=== PATIENT | female | born 1950 | race Caucasian/White ===

== ENCOUNTER 2023-01-20 21:32 | Observation (INO) | payer MEDICARE ==
[2023-01-20] MEDS ORDERED: Ondansetron 4 MG Tab.DIS PO ONE (22:31)
[2023-01-20 22:45] LABS: ESTIMATED GFR 90 mL/min (>60); TROPONIN I HIGH SENSITIVITY 8.6 pg/mL (<=60.3)
[2023-01-20] MEDS ORDERED: Sodium Chloride 0.9% 10 ML Syringe FLUSH PRN (23:11)
[2023-01-20] MEDS: Sodium Chloride 0.9% 1,000 ML IV SCH (23:27)
[2023-01-20] MEDS ORDERED: HYDROmorphone 0.5 MG/0.5 ML Syringe IVPUSH ONE (23:45)
[2023-01-21] MEDS: hydrALAZINE 25 MG Tab PO SCH ×4 (00:43→21:28)
[2023-01-21] MEDS: Cephalexin 250 MG Cap PO SCH ×3 (01:27→21:27)
[2023-01-21] MEDS: Sodium Chloride 0.9% 1,000 ML IV SCH (06:21)
[2023-01-21] MEDS ORDERED: Sodium Chloride 0.9% 1,000 ML IV SCH (08:30)
[2023-01-21] MEDS ORDERED: fentaNYL 100 MCG/2 ML SDV IVPUSH ONE (09:02)
[2023-01-21] MEDS ORDERED: Ondansetron 4 MG/2 ML SDV IVPUSH ONE (09:02)
[2023-01-21] MEDS ORDERED: HYDROmorphone 1 MG/ML Syringe IVPUSH ONE (10:39)
[2023-01-21 14:48] LABS: CORONAVIRUS COVID-19 NAA NEGATIVE (NEGATIVE)
[2023-01-21] MEDS ORDERED: Sodium Chloride 0.9% 250 ML IV SCH (15:15)
[2023-01-21] MEDS: HYDROmorphone 0.5 MG/0.5 ML Syringe IVPUSH PRN ×3 (15:46→21:25)
[2023-01-21] MEDS ORDERED: Non-Formulary Medication 1 Each (Hydroxyzine Hcl [Hydroxyzine Hcl] 50 MG Tablet) PO SCH (21:00)
[2023-01-21] MEDS ORDERED: Lisinopril 20 MG Tab PO SCH (21:00)
[2023-01-22] MEDS: hydrALAZINE 25 MG Tab PO SCH ×3 (02:04→13:22)
[2023-01-22] MEDS: HYDROmorphone 0.5 MG/0.5 ML Syringe IVPUSH PRN ×2 (03:41→05:54)
[2023-01-22] MEDS: Acetaminophen/HYDROcodone 325-5 MG Tab PO PRN ×2 (08:31→13:21)
[2023-01-22] MEDS: Baclofen 10 MG Tab PO PRN ×2 (08:32→18:09)
[2023-01-22] MEDS: Cephalexin 250 MG Cap PO SCH (08:32)
[2023-01-22] MEDS ORDERED: Ondansetron 4 MG/2 ML SDV IV PRN (13:45)
[2023-01-22] MEDS ORDERED: Sodium Chloride 0.9% 10 ML Syringe FLUSH PRN (13:45)
[2023-01-22] MEDS: Enoxaparin 40 MG/0.4 ML Syringe SUBCUT SCH (15:52)
[2023-01-22] MEDS: Lisinopril 20 MG Tab PO SCH ×2 (15:53→21:22)
[2023-01-22] MEDS: hydrOXYzine HCl 25 MG Tab PO SCH (21:22)
[2023-01-22] MEDS: Acetaminophen 325 MG Tab PO PRN (21:27)
[2023-01-23] MEDS: Acetaminophen 325 MG Tab PO PRN ×2 (05:35→11:19)
[2023-01-23] MEDS: Baclofen 10 MG Tab PO PRN (05:35)
[2023-01-23] MEDS: Lisinopril 20 MG Tab PO SCH ×2 (08:40→20:15)
[2023-01-23] MEDS ORDERED: Baclofen 10 MG Tab PO PRN (10:38)
[2023-01-23] MEDS: Acetaminophen/HYDROcodone 325-5 MG Tab PO PRN ×2 (15:18→20:14)
[2023-01-23] MEDS: Enoxaparin 40 MG/0.4 ML Syringe SUBCUT SCH (15:20)
[2023-01-23] MEDS: hydrOXYzine HCl 25 MG Tab PO SCH (20:15)
[2023-01-24] MEDS: Acetaminophen/HYDROcodone 325-5 MG Tab PO PRN ×2 (02:58→07:55)
[2023-01-24] MEDS: Lisinopril 20 MG Tab PO SCH (08:00)
== END 2023-01-24 10:35 | disposition home or self-care (01) ==
LOC: JP.ED 21:32 → JP.MS 01-22 12:34
PROVIDERS: ADMIT Hospitalist; ATTEND Hospitalist
DX: E87.1 Hypo-osmolality and hyponatremia (principal); M54.50 Low back pain, unspecified; G89.29 Other chronic pain; R51.9 Headache, unspecified; I10 Essential (primary) hypertension; Z87.891 Personal history of nicotine dependence; Z88.2 Allergy status to sulfonamides; Z88.8 Allergy status to other drugs, medicaments and biological substances; Z20.822 Contact with and (suspected) exposure to COVID-19; Z79.899 Other long term (current) drug therapy
CPT/HCPCS: 0241U; 36415; 70450; 80048; 80053; 81001; 84295; 84484; 85025; 85610; 85730; 86140; 87086; 93005; 93010; 96361; 96372; 96374; 96375; 96376; 97161; 97535; 99285; A9270; G0378; J1170; J1650; J2405; J3010; J3490; J7030; J7050; Q0162; 99222; 99232; 99238

== ENCOUNTER 2024-08-06 10:59 | Inpatient (IN) | payer MEDICARE ==
[2024-08-06] MEDS: Cyclobenzaprine 10 MG Tab PO ONE (11:58)
[2024-08-06 13:41] LABS: BASOPHILS ABSOLUTE AUTO 0.02 K/uL (0.00-0.10); BASOPHILS PERCENT AUTO 0.2 % (0.1-1.3); EOSINOPHILS ABSOLUTE AUTO 0.03 K/uL (0.00-0.40); EOSINOPHILS PERCENT AUTO 0.3 % (0.0-5.4); HEMATOCRIT 30.2 % (34.3-46.0); HEMOGLOBIN 10.4 g/dL (11.2-15.5); IMMATURE GRAN ABSOLUTE AUTO 0.05 K/uL (0.00-0.23); IMMATURE GRAN PERCENT AUTO 0.5 % (0.0-0.7); LYMPHOCYTES ABSOLUTE AUTO 0.77 K/uL (0.8-3.3); LYMPHOCYTES PERCENT AUTO 7.2 % (11.4-47.7); MEAN CORPUSCULAR HEMOGLOBIN 29.1 pg (31.6-35.5); MEAN CORPUSCULAR HGB CONC 34.4 g/dL (31.6-35.5); MEAN CORPUSCULAR VOLUME 84.6 fL (81.4-99.0); MONOCYTES ABSOLUTE AUTO 0.64 K/uL (0.20-0.90); NEUTROPHILS ABSOLUTE AUTO 9.15 K/uL (1.0-7.6); NEUTROPHILS PERCENT AUTO 85.8 % (40.0-78.1); PLATELET COUNT,PLT 257 K/uL (130-375); RED BLOOD CELL COUNT 3.57 M/uL (3.77-5.24); WHITE BLOOD CELL COUNT,WBC 10.7 K/uL (3.2-11.0)
[2024-08-06] MEDS: HYDROmorphone 0.5 MG/0.5 ML Syringe IVPUSH ONE (13:47)
[2024-08-06] MEDS: Sodium Chloride 0.9% 10 ML Syringe FLUSH PRN (13:47)
[2024-08-06 13:55] LABS: ANION GAP 14.3 mmol/L (5.0-14.0); CALCIUM 9.5 mg/dL (8.5-10.1); CREATININE 0.7 mg/dL (0.6-1.0); EST CRCL DRUG DOSING (CG) 47.98 mL/min; POTASSIUM,K 4.3 mmol/L (3.6-5.2)
[2024-08-06] MEDS ORDERED: Magnesium Hydroxide 400 MG/5 ML Susp 30 ML Cup PO PRN (14:23)
[2024-08-06] MEDS ORDERED: Ondansetron 4 MG/2 ML SDV IV PRN (14:23)
[2024-08-06] MEDS ORDERED: LORazepam 2 MG/ML SDV IVPUSH PRN (14:23)
[2024-08-06] MEDS ORDERED: Ondansetron 4 MG Tab.DIS PO PRN (14:23)
[2024-08-06] MEDS: Sodium Chloride 0.9% 1,000 ML IV SCH (15:13)
[2024-08-06] MEDS: HYDROmorphone 1 MG/ML Syringe IVPUSH PRN (16:10)
[2024-08-06] MEDS ORDERED: Lisinopril 20 MG Tab PO SCH (21:00)
[2024-08-06] MEDS: Acetaminophen/HYDROcodone 325-5 MG Tab PO SCH (21:14)
[2024-08-07] MEDS: HYDROmorphone 1 MG/ML Syringe IVPUSH PRN (02:58)
[2024-08-07 05:06] LABS: MEAN CORPUSCULAR HEMOGLOBIN 28.7 pg (31.6-35.5); MEAN CORPUSCULAR HGB CONC 33.3 g/dL (31.6-35.5); RED BLOOD CELL COUNT 3.49 M/uL (3.77-5.24)
[2024-08-07] MEDS: HYDROmorphone 0.5 MG/0.5 ML Syringe IVPUSH PRN (05:26)
[2024-08-07 05:31] LABS: A/G RATIO 0.9 (1.2-2.2); ALANINE AMINOTRANSFERASE,ALT 16 U/L (12-78); ALKALINE PHOSPHATASE 135 U/L (46-116); ASPARTATE AMNIOTRANSFERASE,AST 17 U/L (15-37); BILIRUBIN TOTAL 0.5 mg/dL (0.2-1.0); BLOOD UREA NITROGEN,BUN 8 mg/dL (7-18); CARBON DIOXIDE,CO2 24 mmol/L (21-32); CHLORIDE,CL 97 mmol/L (100-108); CREATININE 0.7 mg/dL (0.6-1.0); EST CRCL DRUG DOSING (CG) 49.11 mL/min; ESTIMATED GFR 90 mL/min (>60); GLUCOSE RANDOM 102 mg/dL (74-106); MAGNESIUM 1.5 mg/dL (1.8-2.4); POTASSIUM,K 3.9 mmol/L (3.6-5.2); PROTEIN TOTAL,TP 6.4 g/dL (6.4-8.2); SODIUM,NA 132 mmol/L (140-148)
[2024-08-07 05:34] LABS: ANION GAP 14.9 mmol/L (5.0-14.0)
[2024-08-07] MEDS: Lisinopril 20 MG Tab PO SCH (08:08)
[2024-08-07] MEDS: Magnesium Sulfate/Water Premix 2 GM in Premix Bag 1 BAG IV ONE (08:20)
[2024-08-07] MEDS ORDERED: Bupivacaine 0.5% 50 ML MDV ONE (14:08)
[2024-08-07] MEDS ORDERED: fentaNYL 100 MCG/2 ML SDV ONE (15:26)
[2024-08-07] MEDS ORDERED: Midazolam 1 MG/ML 2 ML SDV ONE (15:27)
[2024-08-07] MEDS ORDERED: Propofol 200 MG/20 ML SDV ONE (15:27)
[2024-08-07] MEDS ORDERED: Lactated Ringers 1,000 ML ONE (16:12)
[2024-08-07] MEDS ORDERED: Sodium Chloride 0.9% 10 ML ONE (19:50)
[2024-08-07] MEDS ORDERED: ePHEDrine 50 MG/ML SDV ONE (19:50)
[2024-08-07] MEDS: oxyCODONE 5 MG Tab PO PRN (22:48)
[2024-08-08 05:18] LABS: BASOPHILS PERCENT AUTO 0.2 % (0.1-1.3); EOSINOPHILS PERCENT AUTO 0.1 % (0.0-5.4); HEMATOCRIT 26.8 % (34.3-46.0); IMMATURE GRAN ABSOLUTE AUTO 0.05 K/uL (0.00-0.23); IMMATURE GRAN PERCENT AUTO 0.5 % (0.0-0.7); LYMPHOCYTES ABSOLUTE AUTO 0.46 K/uL (0.8-3.3); LYMPHOCYTES PERCENT AUTO 4.6 % (11.4-47.7); MEAN CORPUSCULAR HEMOGLOBIN 28.6 pg (31.6-35.5); MEAN CORPUSCULAR HGB CONC 33.6 g/dL (31.6-35.5); MEAN CORPUSCULAR VOLUME 85.1 fL (81.4-99.0); MONOCYTES ABSOLUTE AUTO 0.73 K/uL (0.20-0.90); MONOCYTES PERCENT AUTO 7.4 % (3.3-12.6); NEUTROPHILS ABSOLUTE AUTO 8.65 K/uL (1.0-7.6); NEUTROPHILS PERCENT AUTO 87.2 % (40.0-78.1); PLATELET COUNT,PLT 235 K/uL (130-375); RED BLOOD CELL COUNT 3.15 M/uL (3.77-5.24); WHITE BLOOD CELL COUNT,WBC 9.9 K/uL (3.2-11.0)
[2024-08-08 05:20] LABS: BASOPHILS ABSOLUTE AUTO 0.02 K/uL (0.00-0.10); EOSINOPHILS ABSOLUTE AUTO 0.01 K/uL (0.00-0.40)
[2024-08-08 05:44] LABS: A/G RATIO 0.8 (1.2-2.2); ALANINE AMINOTRANSFERASE,ALT 17 U/L (12-78); ALBUMIN 2.6 g/dL (3.4-5.0); ALKALINE PHOSPHATASE 118 U/L (46-116); ASPARTATE AMNIOTRANSFERASE,AST 17 U/L (15-37); BILIRUBIN TOTAL 0.5 mg/dL (0.2-1.0); BLOOD UREA NITROGEN,BUN 9 mg/dL (7-18); CALCIUM 8.7 mg/dL (8.5-10.1); CARBON DIOXIDE,CO2 25 mmol/L (21-32); CHLORIDE,CL 99 mmol/L (100-108); CREATININE 0.6 mg/dL (0.6-1.0); ESTIMATED GFR 93 mL/min (>60); GLUCOSE RANDOM 131 mg/dL (74-106); MAGNESIUM 1.6 mg/dL (1.8-2.4); POTASSIUM,K 4.1 mmol/L (3.6-5.2); PROTEIN TOTAL,TP 5.7 g/dL (6.4-8.2); SODIUM,NA 133 mmol/L (140-148)
[2024-08-08 05:45] LABS: ANION GAP 13.1 mmol/L (5.0-14.0)
[2024-08-08] MEDS: ceFAZolin 2 GM in Premix Bag 1 BAG IV SCH (08:28)
[2024-08-08] MEDS: Aspirin 325 MG Tab.EC PO SCH (08:29)
[2024-08-08] MEDS: Magnesium Sulfate/Water Premix 2 GM in Premix Bag 1 BAG IV ONE (10:36)
[2024-08-08] MEDS: Sennosides/Docusate Sodium 50-8.6 MG Tab PO PRN (17:58)
[2024-08-09] MEDS: Acetaminophen 325 MG Tab PO PRN (00:10)
[2024-08-09 05:48] LABS: HEMATOCRIT 23.9 % (34.3-46.0); HEMOGLOBIN 8.3 g/dL (11.2-15.5); MEAN CORPUSCULAR HGB CONC 34.7 g/dL (31.6-35.5); MEAN CORPUSCULAR VOLUME 83.6 fL (81.4-99.0); RED BLOOD CELL COUNT 2.86 M/uL (3.77-5.24); WHITE BLOOD CELL COUNT,WBC 10.6 K/uL (3.2-11.0)
[2024-08-09] MEDS: HYDROmorphone 2 MG Tab PO PRN (10:23)
== END 2024-08-10 12:50 | disposition home or self-care (01) | DRG 522 ==
LOC: JP.ED 10:59 → JP.MS 13:56
PROVIDERS: ADMIT Hospitalist; ATTEND Internal Medicine
PROC: 0SRR0JA Replacement of Right Hip Joint, Femoral Surface with Synthetic Substitute, Uncemented, Open Approach (ICD-10-PCS; principal; 2024-08-07 14:30)
DX: S72.001A Fracture of unspecified part of neck of right femur, initial encounter for closed fracture (principal); D62 Acute posthemorrhagic anemia; E87.1 Hypo-osmolality and hyponatremia; Z88.2 Allergy status to sulfonamides; Z88.8 Allergy status to other drugs, medicaments and biological substances; X58.XXXA Exposure to other specified factors, initial encounter; I10 Essential (primary) hypertension; M19.90 Unspecified osteoarthritis, unspecified site; G62.9 Polyneuropathy, unspecified; E83.42 Hypomagnesemia; Z88.1 Allergy status to other antibiotic agents; Z79.899 Other long term (current) drug therapy; Z87.440 Personal history of urinary (tract) infections; Z86.16 Personal history of COVID-19; Z98.890 Other specified postprocedural states
CPT/HCPCS: 36415; 73700; 76377; 80048; 85025; 96374; 99285; A9270; J1170; J3490; 01230-QZ; 72170; 72170-26; 73502-26-RT; 73502-RT; 80053; 83735; 85018; 85027; 97110-GP; 97116-GP; 97161-GP; 97165-GO; 97535-GO; 99223; 99232; 99238; 99283; C1776; J0665; J0690; J2250; J2704; J3010; J3475; J7030; J7120

== ENCOUNTER 2025-06-17 08:26 | Emergency (ER) | payer MEDICARE ==
[2025-06-17 09:30] LABS: BASOPHILS ABSOLUTE AUTO 0.04 K/uL (0.00-0.10); BASOPHILS PERCENT AUTO 0.6 % (0.1-1.3); EOSINOPHILS ABSOLUTE AUTO 0.06 K/uL (0.00-0.40); EOSINOPHILS PERCENT AUTO 0.9 % (0.0-5.4); IMMATURE GRAN ABSOLUTE AUTO 0.03 K/uL (0.00-0.23); IMMATURE GRAN PERCENT AUTO 0.5 % (0.0-0.7); LYMPHOCYTES ABSOLUTE AUTO 1.00 K/uL (0.8-3.3); LYMPHOCYTES PERCENT AUTO 15.5 % (11.4-47.7); MONOCYTES ABSOLUTE AUTO 0.39 K/uL (0.20-0.90); MONOCYTES PERCENT AUTO 6.1 % (3.3-12.6); NEUTROPHILS ABSOLUTE AUTO 4.92 K/uL (1.0-7.6); NEUTROPHILS PERCENT AUTO 76.4 % (40.0-78.1); PLATELET COUNT,PLT 307 K/uL (130-375); RED BLOOD CELL COUNT 3.90 M/uL (3.77-5.24); WHITE BLOOD CELL COUNT,WBC 6.4 K/uL (3.2-11.0)
[2025-06-17 09:36] LABS: BLOOD UREA NITROGEN,BUN 21 mg/dL (7-18); CARBON DIOXIDE,CO2 23 mmol/L (21-32); CHLORIDE,CL 92 mmol/L (100-108); CREATININE 0.7 mg/dL (0.6-1.0); EST CRCL DRUG DOSING (CG) 45.78 mL/min; ESTIMATED GFR 89 mL/min (>60); GLUCOSE RANDOM 118 mg/dL (74-106); POTASSIUM,K 4.2 mmol/L (3.6-5.2); SODIUM,NA 125 mmol/L (140-148)
[2025-06-17 09:37] LABS: A/G RATIO 1.1 (1.2-2.2); ALANINE AMINOTRANSFERASE,ALT 18 U/L (12-78); ASPARTATE AMNIOTRANSFERASE,AST 20 U/L (15-37); BILIRUBIN TOTAL 0.5 mg/dL (0.2-1.0); PROTEIN TOTAL,TP 7.1 g/dL (6.4-8.2)
[2025-06-17] MEDS: Ondansetron 4 MG/2 ML SDV IVPUSH ONE (09:42)
[2025-06-17] MEDS: Iopamidol 612 MG/ML 100 ML Bottle IV PRN (09:56)
[2025-06-17] MEDS: Sodium Chloride 0.9% 10 ML Syringe FLUSH PRN (09:56)
[2025-06-17 11:23] LABS: APPEARANCE,URINE CLEAR (CLEAR); GLUCOSE,URINE NEGATIVE (NEGATIVE); OCCULT BLOOD,URINE TRACE-INTACT (NEGATIVE)
[2025-06-17 11:37] LABS: SQUAMOUS EPITHELIAL CELLS,UR RARE /HPF
== END 2025-06-17 12:37 | disposition home or self-care (01) ==
LOC: JP.ED 08:26
DX: R10.84 Generalized abdominal pain (principal); R11.2 Nausea with vomiting, unspecified; I10 Essential (primary) hypertension; Z88.2 Allergy status to sulfonamides; Z79.899 Other long term (current) drug therapy; Z86.16 Personal history of COVID-19
CPT/HCPCS: 36415; 74177; 80053; 81001; 83690; 85025; 96361; 96374; 99284; J2405; J7030; Q9967